=== PATIENT | female | born 1980 | race Caucasian/White ===

== ENCOUNTER 2017-08-19 16:10 | Emergency (ER) | payer MEDICAID ==
[2017-08-19] MEDS: IBUPROFEN 800 MG TAB PO (19:13)
[2017-08-19] MEDS: ACETAMINOPHEN 500 MG TAB PO (19:13)
[2017-08-19 19:19] LABS: URINE BLOOD (Dip) POC 3+ (NEGATIVE); URINE GLUCOSE (Dip) POC Negative (NEGATIVE); URINE KETONES (Dip) POC Negative (NEGATIVE); URINE LEUKOCYTE EST (Dip) POC Negative (NEGATIVE); URINE NITRITE (Dip) POC Negative (NEGATIVE); URINE TOTAL PROTEIN POC 2+ (NEGATIVE)
[2017-08-19] MEDS: LEVALBUTEROL (NEB) 1.25 MG/0.5 ML AMP HHN (19:20)
[2017-08-19] MEDS: OSELTAMIVIR 75 MG CAP PO (21:59)
== END 2017-08-19 22:21 | disposition home or self-care (01) ==
LOC: FTE 16:10
DX: J10.1 Influenza due to other identified influenza virus with other respiratory manifestations (principal)
CPT/HCPCS: 71046; 81003; 87400; 94664; 99284-25